=== PATIENT | male | born 1990 | race American Indian/Alaskan Native ===

== ENCOUNTER 2019-07-11 03:06 | Emergency (ER) | payer SELFPAY ==
[2019-07-11 04:07] LABS: Hematocrit 39.5 % (35.5-45.6); Hemoglobin 13.3 gm/dl (11.8-15.2); Mean Corpuscular HGB Conc 34 % (32-34); Mean Corpuscular Volume 96 fl (84-94); Platelet Count 153 K/mm3 (140-440); Red Blood Count 4.11 M/mm3 (3.65-5.03); Red Cell Distribution Width 12.8 % (13.2-15.2)
[2019-07-11 04:23] LABS: BUN/Creatinine Ratio 10; Blood Urea Nitrogen 7 mg/dL (9-20); Calcium 9.3 mg/dL (8.4-10.2); Hemolysis Index 14
[2019-07-11] MEDS ORDERED: levETIRAcetam 1000 MG/NS 0.75% 1,000 MG/100 ML BAG IV ONE (04:23)
[2019-07-11 05:18] LABS: Benzodiazepines Screen,Urine PRESUMPTIVE NEGATIVE; Cocaine Screen,Urine PRESUMPTIVE NEGATIVE; Methadone Screen,Urine PRESUMPTIVE NEGATIVE; Opiate Screen,Urine PRESUMPTIVE NEGATIVE
--- NOTE | 2019-07-11 05:32 | Emergency Department Report ---
ED Seizure HPI - General Chief Complaint: Seizure Stated Complaint: SEIZURE Time Seen by Provider: 07/11/19 04:01 Source: patient, EMS Mode of arrival: Stretcher Limitations: No Limitations - History of Present Illness Initial Comments: Patient is a 28-year-old -[place] male who is presenting status post probable new onset seizure. Patient has no known past medical problems. 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 Try to turn around to leave the kitchen but then lost consciousness. Bystanders state that there was a 1 minute seizure like activity. Patient states the next thing he remembers was being in the ambulance. This was approximately 10-15 minutes after seizure occurred. Patient does state he drinks daily but did have a drink today. He uses marijuana recreationally as well. Patient's mother has epilepsy. He has not been sleep deprived. Patient still states during the seizure-like activity did bite the right side of his tongue. - Related Data Previous Rx's Medication Instructions Recorded Last Taken Type Chlorhexidine Mouthwash [Peridex] 15 ml MM BID #1 bottle 07/11/19 Unknown Rx levETIRAcetam [Keppra TAB] 500 mg PO BID #60 tablet 07/11/19 Unknown Rx Allergies Allergy/AdvReac Type Severity Reaction Status Date / Time No Known Allergies Allergy Unverified 07/11/19 03:27 ED Review of Systems ROS: Stated complaint: SEIZURE Other details as noted in HPI Comment: All other systems reviewed and negative ED Past Medical Hx - Past Medical History Previous Medical History?: No - Surgical History Past Surgical History?: No - Medications Home Medications: Home Medications Medication Instructions Recorded Confirmed Last Taken Type Chlorhexidine Mouthwash [Peridex] 15 ml MM BID #1 bottle 07/11/19 Unknown Rx levETIRAcetam [Keppra TAB] 500 mg PO BID #60 tablet 07/11/19 Unknown Rx ED Physical Exam - General Limitations: No Limitations General appearance: alert, in no apparent distress - Head Head exam: Present: atraumatic, normocephalic - Eye Eye exam: Present: normal appearance - ENT ENT exam: Present: mucous membranes moist, other (abrasion to the right side of the tongue) - Neck Neck exam: Present: normal inspection - Respiratory Respiratory exam: Present: normal lung sounds bilaterally. Absent: respiratory distress, wheezes, rales, rhonchi - Cardiovascular Cardiovascular Exam: Present: regular rate, normal rhythm, normal heart sounds. Absent: systolic murmur, diastolic murmur, rubs, gallop - GI/Abdominal GI/Abdominal exam: Present: soft, normal bowel sounds. Absent: distended, tenderness, guarding - Rectal Rectal exam: Present: deferred - Extremities Exam Extremities exam: Present: normal inspection - Back Exam Back exam: Present: normal inspection - Neurological Exam Neurological exam: Present: alert, oriented X3, CN II-XII intact, reflexes normal. Absent: motor sensory deficit - Psychiatric Psychiatric exam: Present: normal affect, normal mood - Skin Skin exam: Present: warm, dry, intact, normal color. Absent: rash ED Course Vital Signs 07/11/19 07/11/19 03:24 05:31 Temperature 98.9 F Pulse Rate 99 H 89 Respiratory 17 16 Rate Blood Pressure 140/86 123/83 [Left] O2 Sat by Pulse 98 100 Oximetry ED Medical Decision Making - Lab Data Result diagrams: 07/11/19 03:36 07/11/19 03:36 Lab Results 07/11/19 07/11/19 07/11/19 Range/Units 03:36 03:36 04:31 WBC 7.3 (4.5-11.0) K/mm3 RBC 4.11 (3.65-5.03) M/mm3 Hgb 13.3 (11.8-15.2) gm/dl Hct 39.5 (35.5-45.6) % MCV 96 H (84-94) fl MCH 32 (28-32) pg MCHC 34 (32-34) % RDW 12.8 L (13.2-15.2) % Plt Count 153 (140-440) K/mm3 Sodium 136 L (137-145) mmol/L Potassium 3.4 L (3.6-5.0) mmol/L Chloride 96.1 L (98-107) mmol/L Carbon Dioxide 20 L (22-30) mmol/L Anion Gap 23 mmol/L BUN 7 L (9-20) mg/dL Creatinine 0.7 L (0.8-1.5) mg/dL Estimated GFR > 60 ml/min BUN/Creatinine Ratio 10 % Glucose 237 H (75-100) mg/dL POC Glucose (70-105) Calcium 9.3 (8.4-10.2) mg/dL Urine Opiates Screen Urine Methadone Screen Ur Barbiturates Screen Ur Phencyclidine Scrn U Benzodiazepines Scrn Urine Cocaine Screen Plasma/Serum Alcohol < 0.01 (0-0.07) % 07/11/19 07/11/19 Range/Units 04:59 05:02 WBC (4.5-11.0) K/mm3 RBC (3.65-5.03) M/mm3 Hgb (11.8-15.2) gm/dl Hct (35.5-45.6) % MCV (84-94) fl MCH (28-32) pg MCHC (32-34) % RDW (13.2-15.2) % Plt Count (140-440) K/mm3 Sodium (137-145) mmol/L Potassium (3.6-5.0) mmol/L Chloride (98-107) mmol/L Carbon Dioxide (22-30) mmol/L Anion Gap mmol/L BUN (9-20) mg/dL Creatinine (0.8-1.5) mg/dL Estimated GFR ml/min BUN/Creatinine Ratio % Glucose (75-100) mg/dL POC Glucose 160 H (70-105) Calcium (8.4-10.2) mg/dL Urine Opiates Screen Presumptive negative Urine Methadone Screen Presumptive negative Ur Barbiturates Screen Presumptive negative Ur Phencyclidine Scrn Presumptive negative U Benzodiazepines Scrn Presumptive negative Urine Cocaine Screen Presumptive negative Plasma/Serum Alcohol (0-0.07) % Critical care attestation.: If time is entered above; I have spent that time in minutes in the direct care of this critically ill patient, excluding procedure time. ED Disposition Clinical Impression: New onset seizure Is pt being admited?: No Does the pt Need Aspirin: No Condition: Stable Instructions: New-Onset Seizure in Adults (ED) Referrals: DIMITRI VILLAR MD [Staff Physician] - 3-5 Days TRACI PURDY MD [Referring] - 3-5 Days Time of Disposition: 06:10
[2019-07-11 05:34] LABS: Amphetamine Screen,Urine PRESUMPTIVE NEGATIVE; Cannabinoid Screen,Urine PRESUMPTIVE POSITIVE
--- NOTE | 2019-07-11 06:26 | Cat Scan Report ---
CT head/brain wo con INDICATION: Pt states he had a new onset seizure today.. TECHNIQUE: All CT scans at this location are performed using CT dose reduction for ALARA by means of automated e xposure control. COMPARISON: None available. FINDINGS: Visualized paranasal and mastoid sinuses are clear. Ventricles are symmetrical and normal in size. No mass, hemorrhage or other significant abnormality. IMPRESSION: 1. Negative study. Signer Name: Gareth Singer MD Signed: 07/11/2019 6:21 AM Workstation Name: [id number]
[2019-07-11 06:52] VITALS: BP 115/88
[2019-07-11] MEDS ORDERED: POTASSIUM CHLORIDE ER 20 MEQ TAB PO ONE (06:59)
--- NOTE | 2019-07-11 07:00 | Emergency Department Report ---
Blank Doc - Documentation Documentation: Patient awake alert neurologically intact. He has persistent hyperglycemia. I asked him if he has been told that before. He responded yes but hasn't been medicated. It would seem that he is a type II diabetic. I'm going to give him metformin. His CT was fine. He remains awake and alert 30 states he is ready for discharge. He will be referred for further management in the primary care setting.
== END 2019-07-11 07:22 | disposition home or self-care (01) ==
LOC: ED 03:06
DX: R56.9 Unspecified convulsions (principal); Z79.899 Other long term (current) drug therapy
CPT/HCPCS: 36415; 70450; 80048; 80307; 82962; 85027; 96374; 99285; J1953; 80320; G0480

== ENCOUNTER 2022-03-09 14:51 | Emergency (ER) | payer SELFPAY ==
--- NOTE | 2022-03-09 17:31 | XRay Report ---
CHEST 2 VIEWS INDICATION / CLINICAL INFORMATION: cp. COMPARISON: None available. FINDINGS: SUPPORT DEVICES: None. HEART / MEDIASTINUM: No significant abnormality. LUNGS / PLEURA: No significant pulmonary or pleural abnormality. No pneumothorax. ADDITIONAL FINDINGS: No significant additional findings. IMPRESSION: 1. No acute findings. Signer Name: Khoa Horton MD Signed: 03/09/2022 5:26 PM Workstation Name: [id number]
[2022-03-10] MEDS ORDERED: ONDANSETRON 4 MG/2 ML INJ IV ONE (01:29)
[2022-03-10] MEDS ORDERED: SODIUM CHLORIDE 0.9% 1000 ML 1,000 ML IV ONE ×2 (01:29→02:49)
[2022-03-10] MEDS ORDERED: DICYCLOMINE 20 MG/2 ML INJ IM ONE (01:29)
[2022-03-10 02:02] LABS: Basophils # (Auto) 0.1 K/mm3 (0.0-0.1); Eosinophils % (Auto) 0.2 % (0.0-4.3); Hemoglobin 16.2 gm/dl (11.8-15.2); Lymphocytes # (Auto) 1.8 K/mm3 (1.2-5.4); Lymphocytes % (Auto) 16.9 % (13.4-35.0); Mean Corpuscular HGB Conc 34 % (32-34); Mean Corpuscular Volume 92 fl (84-94); Monocytes # (Auto) 1.4 K/mm3 (0.0-0.8); Monocytes % (Auto) 12.7 % (0.0-7.3); Platelet Count 240 K/mm3 (140-440); Red Blood Count 5.22 M/mm3 (3.65-5.03); Red Cell Distribution Width 14.4 % (13.2-15.2)
[2022-03-10 02:04] LABS: Basophils % (Auto) 0.7 % (0.0-1.8)
[2022-03-10 02:16] LABS: Alanine Aminotransferase 73 units/L (7-56); Albumin 5.1 g/dL (3.9-5); Blood Urea Nitrogen 10 mg/dL (9-20); Calcium 10.5 mg/dL (8.4-10.2); Hemolysis Index 24
[2022-03-10 02:32] LABS: Color,Urine Yellow (Yellow)
[2022-03-10 02:34] LABS: BUN/Creatinine Ratio 14
[2022-03-10 02:37] LABS: Bacteria,Urine 1+ /HPF (Negative); Mucus,Urine 1+ /HPF
[2022-03-10 02:39] LABS: Ictotest,Urine Negative (Negative)
--- NOTE | 2022-03-10 02:57 | Emergency Department Report ---
ED General Adult HPI - General Chief complaint: Chest Pain Stated complaint: CHEST PAIN Time Seen by Provider: 03/10/22 01:28 Source: patient Mode of arrival: Ambulatory Limitations: No Limitations - History of Present Illness Initial comments: Patient 31-year-old male who presents for generalized upper abdominal pain with cramping with nausea vomiting x3 days. Patient endorses EtOH abuse, marijuana use daily. He denies fevers or chills. Denies diarrhea or melena symptoms are rated at 4/10 and cramping. Is exacerbated by p.o. intake. Symptoms are relieved by nothing tried. Severity scale (0 -10): 10 - Related Data Previous Rx's Medication Instructions Recorded Last Taken Type Chlorhexidine Mouthwash [Peridex] 15 ml MM BID #1 bottle 07/11/19 Unknown Rx levETIRAcetam [Keppra TAB] 500 mg PO BID #60 tablet 07/11/19 Unknown Rx metFORMIN [Glucophage] 500 mg PO BID #60 tablet 07/11/19 Unknown Rx Omeprazole 40 mg PO BID #60 tab 03/10/22 Unknown Rx Ondansetron [Zofran Odt] 4 mg PO Q8HR PRN #12 tab.rapdis 03/10/22 Unknown Rx traMADoL [Ultram] 50 mg PO Q6HR PRN #12 tablet 03/10/22 Unknown Rx Allergies Allergy/AdvReac Type Severity Reaction Status Date / Time No Known Allergies Allergy Verified 03/09/22 16:37 ED Review of Systems ROS: Stated complaint: CHEST PAIN Other details as noted in HPI Constitutional: denies: chills, fever Eyes: denies: eye pain, eye discharge, vision change ENT: denies: ear pain, throat pain Respiratory: denies: cough, shortness of breath, wheezing Cardiovascular: denies: chest pain, palpitations Endocrine: no symptoms reported Gastrointestinal: abdominal pain, nausea, vomiting. denies: diarrhea, constipation, melena Genitourinary: denies: urgency, dysuria, frequency, hematuria, discharge Musculoskeletal: denies: back pain, joint swelling, arthralgia Skin: denies: rash, lesions Neurological: denies: headache, weakness, paresthesias, vertigo Psychiatric: denies: anxiety, depression Hematological/Lymphatic: denies: easy bleeding, easy bruising ED Past Medical Hx - Medications Home Medications: Home Medications Medication Instructions Recorded Confirmed Last Taken Type Chlorhexidine Mouthwash [Peridex] 15 ml MM BID #1 bottle 07/11/19 Unknown Rx levETIRAcetam [Keppra TAB] 500 mg PO BID #60 tablet 07/11/19 Unknown Rx metFORMIN [Glucophage] 500 mg PO BID #60 tablet 07/11/19 Unknown Rx Omeprazole 40 mg PO BID #60 tab 03/10/22 Unknown Rx Ondansetron [Zofran Odt] 4 mg PO Q8HR PRN #12 tab.rapdis 03/10/22 Unknown Rx traMADoL [Ultram] 50 mg PO Q6HR PRN #12 tablet 03/10/22 Unknown Rx ED Physical Exam - General Limitations: No Limitations General appearance: alert, in no apparent distress - Head Head exam: Present: normocephalic, normal inspection - Eye Eye exam: Present: EOMI Pupils: Present: normal accommodation - ENT ENT exam: Present: mucous membranes moist - Neck Neck exam: Present: normal inspection, full ROM. Absent: tenderness, l ymphadenopathy - Respiratory Respiratory exam: Present: normal lung sounds bilaterally. Absent: respiratory distress, wheezes, stridor, chest wall tenderness - Cardiovascular Cardiovascular Exam: Present: regular rate, normal rhythm, normal heart sounds. Absent: systolic murmur, diastolic murmur, rubs, gallop - GI/Abdominal GI/Abdominal exam: Present: soft, normal bowel sounds. Absent: distended, tenderness, guarding, rebound, rigid, bruit, hernia - Rectal Rectal exam: Present: deferred - Extremities Exam Extremities exam: Present: normal inspection, full ROM, normal capillary refill. Absent: tenderness - Back Exam Back exam: Present: normal inspection, full ROM. Absent: CVA tenderness (R), CVA tenderness (L) - Neurological Exam Neurological exam: Present: alert, oriented X3, CN II-XII intact, normal gait - Psychiatric Psychiatric exam: Present: normal affect, normal mood - Skin Skin exam: Present: warm, dry, intact, normal color. Absent: rash ED Course Vital Signs 03/09/22 03/09/22 03/10/22 16:33 21:59 00:49 Temperature 97.8 F 98.2 F Pulse Rate 103 H 114 H 110 H Respiratory 20 18 14 Rate Blood Pressure 158/120 Blood Pressure 162/112 152/109 [Right] O2 Sat by Pulse 99 98 100 Oximetry ED Medical Decision Making - Lab Data Result diagrams: 03/10/22 01:41 03/10/22 01:41 Labs 03/10/22 03/10/22 03/10/22 01:41 01:41 Unknown WBC 10.7 RBC 5.22 H Hgb 16.2 H Hct 48.0 H MCV 92 MCH 31 MCHC 34 RDW 14.4 Plt Count 240 Lymph % (Auto) 16.9 Daniels % (Auto) 12.7 H Eos % (Auto) 0.2 Baso % (Auto) 0.7 Lymph # (Auto) 1.8 Daniels # (Auto) 1.4 H Eos # (Auto) 0.0 Baso # (Auto) 0.1 Seg Neutrophils % 69.5 Seg Neutrophils # 7.5 Sodium 134 L Potassium 4.9 Chloride 86.7 L Carbon Dioxide 33 H Anion Gap 19 BUN 10 Creatinine 0.7 L Estimated GFR > 60 BUN/Creatinine Ratio 14 Glucose 99 Calcium 10.5 H Total Bilirubin 0.70 AST 96 H ALT 73 H Alkaline Phosphatase 151 H Total Protein 9.2 H Albumin 5.1 H Albumin/Globulin Ratio 1.2 Lipase 34 Urine Color Yellow Urine Turbidity Slightly cloudy Specific [place] (Man) 1.020 Ur Protein (Man) 4+ Ur Ketones (Man) 1+ Ur Nitrite (Man) Negative Urine Bilirubin (Man) Small Urine Ictotest Negative Leukocyte Esterase (Man) Negative Urine WBC (Auto) 44.0 H Urine RBC (Auto) 12.0 U Epithel Cells (Auto) 6.0 Urine Bacteria (Auto) 1+ Urine RBC (Manual) 3+ Urine Mucus 1+ Urine Yeast (Budding) 3+ - EKG Data EKG shows normal: sinus rhythm, axis, intervals, QRS complexes, ST-T waves Rate: normal - EKG Data When compared to previous EKG there are: previous EKG unavailable Interpretation: normal EKG (Normal sinus rhythm no ST elevated [place] interpreted by ED attending) - Radiology Data Radiology results: report reviewed, image reviewed CHEST 2 VIEWS INDICATION / CLINICAL INFORMATION: cp. COMPARISON: None available. FINDINGS: SUPPORT DEVICES: None. HEART / MEDIASTINUM: No significant abnormality. LUNGS / PLEURA: No significant pulmonary or pleural abnormality. No pneumothorax. ADDITIONAL FINDINGS: No significant additional findings. IMPRESSION: 1. No acute findings. Signer Name: Khoa Horton MD Signed: 03/09/2022 5:26 PM Workstation Name: [id number] Transcribed By: Dictated By: Khoa Horton MD Electronically Authenticated By: Khoa Horton MD Signed Date/Time: 03/09/221725 DD/ 25 TD/TT: CT ABDOMEN AND PELVIS WITHOUT CONTRAST INDICATION / CLINICAL INFORMATION: Bilateral flank pain TECHNIQUE: Axial CT images were obtained through the abdomen and pelvis without IV contrast. All CT scans at this location are performed using CT dose reduction for ALARA by means of automated exposure control. COMPARISON: None available. FINDINGS: LOWER CHEST: No significant abnormality. LIVER: Fatty liver. GALLBLADDER: Moderate gallbladder sludge. BILE DUCTS: No significant abnormality. PANCREAS: No significant abnormality. SPLEEN: No significant abnormality. ADRENALS: No significant abnormality. RIGHT KIDNEY and URETER: No significant abnormality. LEFT KIDNEY and URETER: No significant abnormality. STOMACH and SMALL BOWEL: No significant abnormality. COLON: No significant abnormality. APPENDIX: No significant abnormality. PERITONEUM: No free fluid. No free air. No fluid collection. LYMPH NODES: No significant adenopathy. AORTA and ARTERIES: No significant abnormality. IVC and VEINS: No significant abnormality. URINARY BLADDER: No significant abnormality. REPRODUCTIVE ORGANS: No significant abnormality. ADDITIONAL FINDINGS: None. SKELETAL SYSTEM: Moderate degenerative changes of the facet joints. IMPRESSION: 1. Mild hepatomegaly with severe hepatic steatosis. 2. No obstructive ureteral calculus. Signer Name: Peter Wynn MD Signed: 03/10/2022 3:13 AM Workstation Name: [id number] Transcribed By: BC Dictated By: Peter Wynn MD Electronically Authenticated By: Peter Wynn MD Signed Date/Time: 03/10/22312 DD/ 9 TD/TT: Print Cancel - Medical Decision Making EKG normal sinus rhythm no ST elevated [place] interpreted by ED attending, chest x- ray normal no infiltrates no opacities, UA noted concerning for Aryan versus renal stone. CT abdomen pelvis; patient tolerated p.o. challenge, Critical care attestation.: If time is entered above; I have spent that time in minutes in the direct care of this critically ill patient, excluding procedure time. ED Disposition Clinical Impression: Fatty liver Abdominal pain Qualifiers: Abdominal location: generalized Qualified Code(s): R10.84 - Generalized abdominal pain Nausea & vomiting Qualifiers: Vomiting type: bilious vomiting Qualified Code(s): R11.14 - Bilious vomiting Disposition: 01 HOME / SELF CARE / HOMELESS Is pt being admited?: No Does the pt Need Aspirin: No Condition: Stable Instructions: Fatty Liver Disease, Nausea and Vomiting, Adult, Abdominal Pain, Adult, [id number] Additional Instructions: Take medications as prescribed, hydrate as directed. Stop alcohol. Marijuana abuse, follow-up with primary care doctor in 2 to 3 days. Return to emergency department should symptoms worsen. Prescriptions: Omeprazole 40 mg PO BID #60 tab traMADoL [Ultram] 50 mg PO Q6HR PRN #12 tablet PRN Reason: Pain Ondansetron [Zofran Odt] 4 mg PO Q8HR PRN #12 tab.rapdis PRN Reason: Nausea Referrals: AWA SALEH MD [Primary Care Provider] - 3-5 Days Forms: Work/School Release Form(ED) Time of Disposition: 04:03
--- NOTE | 2022-03-10 03:17 | Cat Scan Report ---
CT ABDOMEN AND PELVIS WITHOUT CONTRAST INDICATION / CLINICAL INFORMATION: Bilateral flank pain TECHNIQUE: Axial CT images were obtained through the abdomen and pelvis without IV contrast. All CT scans at [facility] location are performed using CT dose reduction for ALARA by means of automated exposure control. COMPARISON: None available. FINDINGS: LOWER CHEST: No significant abnormality. LIVER: Fatty liver. GALLBLADDER: Moderate gallbladder sludge. BILE DUCTS: No significant abnormality. PANCREAS: No significant abnormality. SPLEEN: No significant abnormality. ADRENALS: No significant abnormality. RIGHT KIDNEY and URETER: No significant abnormality. LEFT KIDNEY and URETER: No significant abnormality. STOMACH and SMALL BOWEL: No significant abnormality. COLON: No significant abnormality. APPENDIX: No significant abnormality. PERITONEUM: No free fluid. No free air. No fluid collection. LYMPH NODES: No significant adenopathy. AORTA and ARTERIES: No significant abnormality. IVC and VEINS: No significant abnormality. URINARY BLADDER: No significant abnormality. REPRODUCTIVE ORGANS: No significant abnormality. ADDITIONAL FINDINGS: None. SKELETAL SYSTEM: Moderate degenerative changes of the facet joints. IMPRESSION: 1. Mild hepatomegaly with severe hepatic steatosis. 2. No obstructive ureteral calculus. Signer Name: Peter Wynn MD Signed: 03/10/2022 3:13 AM Workstation Name: [email or web address]
[2022-03-10 04:28] VITALS: BP 143/103
--- NOTE | 2022-03-10 13:37 | Electrocardiograph Report ---
[facility] Test Date: 2022-03-09 Test Time: 16:43:56 Pat Name: JOSE MARTIN ANN Department: Room: Gender: M [employer]: NURSE : 1990 Requested By: YEIMI WHITESIDE Order Number: [id number] Reading MD: Isaac Lozoya Measurements Intervals [place] Rate: 82 P: 28 [place]: 124 QRS: 59 QRSD: 77 T: 62 QT: 374 QTc: 436 Interpretive Statements Sinus rhythm No previous ECG available for comparison Electronically Signed On 03-10-2022 13:36:53 EDT by Isaac Lozoya
== END 2022-03-10 04:28 | disposition home or self-care (01) ==
LOC: ED 14:51
DX: K76.0 Fatty (change of) liver, not elsewhere classified (principal); R10.9 Unspecified abdominal pain; R11.2 Nausea with vomiting, unspecified
CPT/HCPCS: 36415; 71046; 74176; 80053; 81001; 83690; 85025; 87086; 93005; 96361; 96372; 96374; 99285; J0500; J2405; J7030